=== PATIENT | female | born 1945 | race Caucasian/White ===

== ENCOUNTER 2021-03-23 04:44 | Emergency (ER) | payer BC, MEDICARE, OTHER ==
[~2021-03-23] VITALS: Ht 162.6 cm; Wt 81.6 kg
[2021-03-23] MEDS ORDERED: KETOROLAC 30MG VIAL (30MG/ML) IV ONE (05:30)
[2021-03-23] MEDS ORDERED: 0.9%NACL 1000ML 1,000 ML IV ONE (05:30)
[2021-03-23 05:39] LABS: BASOPHILS % (AUTO) 0.9 % (0.0-5.0); EOSINOPHILS % (AUTO) 5.2 % (0.0-8.0); HEMATOCRIT 43.1 % (36-48); LYMPHOCYTES % (AUTO) 37.7 % (21.0-51.0); MEAN CORPUSCULAR HEMOGLOBIN 27.5 pg (27.0-33.0); MEAN CORPUSCULAR HGB CONC 34.1 g/dL (32.0-36.0); MEAN CORPUSCULAR VOLUME 80.6 fL (79-99); MONOCYTES % (AUTO) 8.8 % (3.0-13.0); NEUTROPHILS % (AUTO) 47.1 % (40.0-77.0); PLATELET COUNT (AUTO) 181 K/uL (130-400); RED BLOOD CELL COUNT(AUTO) 5.35 MIL/uL (4.00-5.50); RED CELL DISTRIBUTION WIDTH 13.1 % (11.0-15.5); WHITE BLOOD COUNT (AUTO) 6.4 K/uL (4.8-10.8)
[2021-03-23 05:47] LABS: CARBON DIOXIDE 28 mmol/L (21-32); CHLORIDE 104 mmol/L (101-111); CREATININE 1.6 mg/dL (0.5-1.5); GLOMERULAR FILTR. RATE CALC 33 mL/min (>60); GLUCOSE,RANDOM 177 mg/dL (70-105); POTASSIUM 3.9 mmol/L (3.5-5.1); SODIUM SERUM 143 mmol/L (136-145); UREA NITROGEN, BLOOD 22 mg/dL (7-18)
[2021-03-23 05:51] LABS: APPEARANCE,URINE Cloudy (CLEAR); BILIRUBIN,URINE Negative (NEGATIVE); COLOR,URINE Yellow (YELLOW); GLUCOSE, URINE (UA) Negative (NEGATIVE); KETONES,URINE Trace mg/dL (NEGATIVE); LEUKOCYTE ESTERASE ,URINE Moderate (NEGATIVE); NITRATE,URINE Positive (NEGATIVE); OCCULT BLOOD,URINE Negative (NEGATIVE); PROTEIN,URINE Negative (NEGATIVE)
[2021-03-23 05:52] LABS: ALANINE AMINOTRANSFERASE 40 U/L (12-78); ASPARTATE AMINOTRANSFERASE 27 U/L (10-37); BILIRUBIN,TOTAL 0.7 mg/dL (0.2-1.0); TOTAL PROTEIN, SERUM 6.7 g/dL (6.0-8.3)
[2021-03-23 05:54] LABS: LIPASE < 50 U/L (114-286)
[2021-03-23 06:09] LABS: BACTERIA,URINE Moderate /HPF (None Seen); RBC,URINE 0-1 /HPF (0-1); SQUAMOUS EPITHELIAL CELL,UR Few /HPF (0-2); WBC,URINE 26-50 /HPF (0-1)
[2021-03-23] MEDS ORDERED: PHEN-776 PO (07:54)
[2021-03-23] MEDS ORDERED: CEPH500B PO (07:54)
[2021-03-23] MEDS ORDERED: DICY20TA2 PO (07:54)
[2021-03-23] MEDS ORDERED: CEFTRIAXONE 1G VIAL IVP ONE (08:00)
[2021-03-23] MEDS ORDERED: CEFTRIAXONE 1G VIAL ONE (08:20)
[2021-03-23 08:58] VITALS: BP 133/64
== END 2021-03-23 09:03 | disposition home or self-care (01) ==
LOC: EDH 04:44
DX: N39.0 Urinary tract infection, site not specified (principal); E11.9 Type 2 diabetes mellitus without complications; E86.1 Hypovolemia; I10 Essential (primary) hypertension; Z79.1 Long term (current) use of non-steroidal anti-inflammatories (NSAID); Z98.890 Other specified postprocedural states
CPT/HCPCS: 36415; 74176; 80053; 81001; 83605; 83690; 85025; 87077; 87088; 87186; 96361; 96374; 96375; 99284; J0696; J1885; J7030

== ENCOUNTER 2021-03-26 08:51 | Emergency (ER) | payer MEDICARE ==
[~2021-03-26] VITALS: Ht 152.4 cm; Wt 81.6 kg
[~2021-03-26 08:51] MED LIST: CEPH500B PO; DICY20TA2 PO; PHEN-776 PO
[2021-03-26 08:52] VITALS: BP 149/74
[2021-03-26] MEDS ORDERED: MELO5CAP3 PO (10:01)
== END 2021-03-26 10:11 | disposition home or self-care (01) ==
LOC: EDH 08:51
DX: S83.91XA Sprain of unspecified site of right knee, initial encounter (principal); I10 Essential (primary) hypertension; E11.9 Type 2 diabetes mellitus without complications; X58.XXXA Exposure to other specified factors, initial encounter; Y93.89 Activity, other specified; Y92.89 Other specified places as the place of occurrence of the external cause; Y99.8 Other external cause status
CPT/HCPCS: 73562

== ENCOUNTER 2022-07-12 15:23 | Emergency (ER) | payer MEDICARE ==
[~2022-07-12] VITALS: Ht 162.6 cm; Wt 59.0 kg
[~2022-07-12 15:23] MED LIST changes: +MELO5CAP3 PO
[2022-07-12 15:47] VITALS: BP 128/81
[2022-07-12] MEDS ORDERED: TETANUS/DIPHTHERIA TOXOID [ADULT] 0.5 ML VIAL IM ONE (16:30)
[2022-07-12] MEDS ORDERED: CEPH500B PO (17:37)
== END 2022-07-12 17:54 | disposition home or self-care (01) ==
LOC: EDH 15:23
DX: S00.01XA Abrasion of scalp, initial encounter (principal); E11.9 Type 2 diabetes mellitus without complications; I10 Essential (primary) hypertension; Z79.899 Other long term (current) drug therapy; Z98.890 Other specified postprocedural states; W18.39XA Other fall on same level, initial encounter; Y93.89 Activity, other specified; Y92.89 Other specified places as the place of occurrence of the external cause; Y99.8 Other external cause status
CPT/HCPCS: 70450; 72125; 90471; 90714

== ENCOUNTER → 2023-11-09 | Outpatient (CLI) | payer OTHER | END | disposition home or self-care (01) | LOC: OIH 12:42 | PROVIDERS: ATTEND Internal Medicine Interventional Cardiology | DX: Z13.6 Encounter for screening for cardiovascular disorders (principal); R93.1 Abnormal findings on diagnostic imaging of heart and coronary circulation | CPT/HCPCS: 75571 ==

== ENCOUNTER 2024-05-06 13:29 | Emergency (ER) | payer OTHER ==
[~2024-05-06] VITALS: Ht 162.6 cm; Wt 68.0 kg
--- NOTE | 2024-05-06 14:47 | HMCIMG ---
KNEE 3VWS RT HISTORY: Right knee pain COMPARISON: None TECHNIQUE: 3 images of right knee were obtained. FINDINGS: There is no acute displaced fracture or dislocation. There is soft tissue swelling. Vascular calcifications are seen. Degenerative changes are seen. IMPRESSION: 1. Findings as described above.
[2024-05-06 14:54] VITALS: BP 160/85; PULSE 68; RESP 16; TEMP 98.1; O2SAT 98
--- NOTE | 2024-05-06 15:15 | ERN ---
General Chief Complaint: Knee Injury/Swelling Stated Complaint: RIGHT KNEE PAIN Time Seen by MD: 14:04 Time Seen by Midlevel: 14:04 Source: patient History of Present Illness Initial Comments 79-year-old female presents to the ED for evaluation of right knee pain onset 2 days ago. Patient reports she fell from a chair onto her knees on Sunday, but states her right knee knee keeps hurting and is swollen. Allergies: Coded Allergies: No Known Drug Allergies (Unverified Allergy, Unknown, 03/23/21) Home Meds Active Scripts Ketorolac Tromethamine (Ketorolac Tromethamine) 10 Mg Tablet, 1 TAB PO BID for pain for 5 Days, #10 TAB 0 Refills Prov:MATTHEW CARD 05/06/24 Cephalexin Monohydrate (Keflex) 500 Mg Cap, 500 MG PO TID for 7 Days, #21 CAP Prov:GIOVANNI PUGH MD 07/12/22 Meloxicam, Submicronized (Meloxicam) 5 Mg Capsule, 5 MG PO DAILY PRN for pain, #10 CAP 0 Refills Prov:HOWARD WU MD 03/26/21 Phenazopyridine HCl (Pyridium) 200 Mg Tablet, 200 MG PO TID, #6 TAB 0 Refills Prov:KEI SERVIN MD 03/23/21 Cephalexin Monohydrate (Keflex) 500 Mg Cap, 500 MG PO TID for 10 Days, #30 CAP 0 Refills Prov:KEI SERVIN MD 03/23/21 Dicyclomine HCl (Bentyl) 20 Mg Tab, 20 MG PO Q6HPRN, #20 TAB 0 Refills Prov:KEI SERVIN MD 03/23/21 Past Medical History Past Medical History: Diabetes-Type II, Hypertension Past Surgical History: None Surgical History Other: Cystocele, Phyllodes Tumor Removal Social History Social History: Negative, Other ROS Dictation Constitutional: Negative for fever,chills, and weight loss Eyes: Negative for injury, pain,redness, and discharge ENT: Negative for injury,pain or swelling Cardiovascular: Negative for chest pain, palpitations, and edema Respiratory: Negative for shortness of breath, cough, and wheezing, Abdomen/GI: Negative for abdominal pain, nausea, vomiting, diarrhea, and co nstipation Back: Negative for injury and pain : Negative for injury, bleeding and discharge MS/Extremity: Positive for knee injury, knee pain, knee swelling Skin: Negative for rash, and discoloration Neuro: Negative for headache, weakness, numbness, tingling, and seizure Psych: Negative for suicide ideation, homicidal ideation, and hallucinations Physical Exam Physical Exam Dictation General: awake, alert, NAD Head/Face: Normocephalic, atraumatic Eyes: PERRL, EOMI, vision at baseline ENT: oral cavity clear, TMs clear, no signs of infection Neck: Trachea midline, supple, no nuchal rigidity Cardiovascular: RRR, normal S1/S2, No MRGs, no JVD Respiratory: CTAB, no respiratory distress, No rales or wheezes Abdomen: Soft, non-tender, non-distended, normal bowel sounds, no guarding or rebound. Skin: Warm, dry, normal turgor, no rash MS/Extremity: Pulses equal, no cyanosis, neurovascular intact, right knee tenderness, swelling Neuro: COAx4, GCS 15, strength 5/5, CN 2-12 intact, normal cerebellar exam, normal gait, Psych: Normal behavior, mood, and affect normal MDM MDM: Patient is a 71-year-old female presenting to the emergency department with right knee pain and mild swelling after a mechanical ground level fall. On physical examination patient has some mild amount of swelling but full range motion of the right knee. There was no point tenderness noted. Distal pulses are intact. Sensation is intact. Right lower extremity is neurovascularly intact. X-ray of the right knee was read by the radiologist as a negative x-ray however when I compared the x-ray that was taken today from one that was performed on earlier this year there appears to be a small avulsion fracture of the superior aspect of the right patella. This could be the reason for her pain and swelling. Patient was offered a knee immobilizer however she refused. The patient had an Reji wrap placed and will be discharged home with supportive management. Differential diagnosis: Fall, knee contusion, knee injury Previous outside records reviewed: Old ER visits. Need for hospitalization: Patient does not meet criteria for hospitalization. Need for emergency major/minor surgery: No Patient's prior external medical records from other ER visits were reviewed by me as indicated. Prior testing and results from previous visits were reviewed. Prior tests were taken into account with medical decision making and resource utilization, independent historian/historians were used to obtain complete medical history. I independently interpreted the test that were performed, results were reviewed by me and considered findings on radiology if ordered. Medical management and examination interpretation discussions were had by me with other qualified healthcare professionals as indicated for the patient's care. ED Course Orders Procedure Category Date Status Time Knee 3vws Rt RAD 05/06/24 Resulted 14:04 Morphine 2mg Syg PHA 05/06/24 Complete (Morphine 2mg Syg) 16:00 Apply Reji Wrap (Er) CPOE 05/06/24 Transmitted 15:56 Current Medications Medications (Trade) Dose Ordered Sig/Иван Route PRN Reason Start Time Stop Time Status Last Admin Dose Admin Morphine Sulfate (morPHINE 2MG SYG) 2 mg ONCE ONCE IM 05/06/24 16:00 05/06/24 16:14 DC 05/06/24 16:26 Vital Signs Date Time Temp Pulse Resp B/P (MAP) Pulse Ox O2 Delivery O2 Flow Rate FiO2 05/06/24 14:54 98.1 68 16 160/85 98 Room Air* 0 21 05/06/24 14:17 97.9 67 20 163/91 96 Room Air 0 [facility] [address] [phone] IMAGING REPORT Signed PATIENT: CRISTELA MOHAMUD MR#: [id number] : 1945 SEX: F AGE: 79 LOCATION: [facility] ORDER 04 STATUS: REG ER REPORT#: [id number] SERVICE 1404 REASON: right knee pain swelling ORDERING PHYSICIAN: MATTHEW CARD PROCEDURE: KNEE 3V RT - KNEE 3VWS RT KNEE 3VWS RT HISTORY: Right knee pain COMPARISON: None TECHNIQUE: 3 images of right knee were obtained. FINDINGS: There is no acute displaced fracture or dislocation. There is soft tissue swelling. Vascular calcifications are seen. Degenerative changes are seen. IMPRESSION: 1. Findings as described above. DICTATED BY: BORIS INFANTE MD DATE: 05/06/241443 ELECTRONICALLY SIGNED BY: BORIS INFANTE MD DATE: 05/06/241446 DX & DISP Disposition: Discharge Departure Impression: Primary Impression: Patella fracture Additional Impression: Contusion of right knee Condition: Stable Scripts Ketorolac Tromethamine (Ketorolac Tromethamine) 10 Mg Tablet 1 TAB PO BID for pain for 5 Days, #10 TAB 0 Refills Prov: MATTHEW CARD 05/06/24 Additional Instructions: You right knee x-ray shows a small avulsion fracture of the right patella. If your symptoms worsened you may follow up with your primary care doctor or orthopedic surgeon for further evaluation. Return to the ER for any new or worsening symptoms Referrals: STEPHEN MARTINEZ MD (PCP) RAYMON ARNOLD MD I have reviewed, & agreed with my scribe's, documentation. (Entered by Chemo Saldana, acting as a scribe for ADITYA Card) I have reviewed the case, and I agree with, Diagnosis and Plan I performed the substantive portion of the visit. I have reviewed and personally made and approve the management plan that is documented in the note by myself or the MARGOT. I acknowledge for responsibility for the patient's management plan. I personally scribed for MATTHEW CARD ([email or web address]) on 05/06/24 at 15:15. Electronically submitted by Chemo Saldana ([email or web address]). MATTHEW CARD May 06, 2024 15:15
[2024-05-06] MEDS ORDERED: KETO10TA2 PO (15:56)
[2024-05-06] MEDS: morPHINE 2 MG SYG IM ONE (16:26)
== END 2024-05-06 16:32 | disposition home or self-care (01) ==
LOC: EDH 13:29
DX: S82.001A Unspecified fracture of right patella, initial encounter for closed fracture (principal); E11.9 Type 2 diabetes mellitus without complications; I10 Essential (primary) hypertension; W07.XXXA Fall from chair, initial encounter; Y93.89 Activity, other specified; Y92.89 Other specified places as the place of occurrence of the external cause; Y99.8 Other external cause status
CPT/HCPCS: 99283; 73562; 96372; J2270

== ENCOUNTER 2024-05-16 07:27 | Emergency (ER) | payer MEDICARE, OTHER ==
[~2024-05-16] VITALS: Ht 162.6 cm; Wt 70.3 kg
[~2024-05-16 07:27] MED LIST changes: +KETO10TA2 PO
--- NOTE | 2024-05-16 08:30 | ERN ---
ED Note History of Present Illness Stated Complaint: RIGHT KNEE PAIN Chief Complaint: Knee Injury/Swelling Dictation: This is a case of a 79-year-old female with a past medical history of diabetes, hypertension who presented to the ER with the complaints of right knee pain. She states that she had a fall on both her knees on 05/03 which prompted visit to the ER. Right knee x-ray at the time resulted in no acute findings and she was discharged on ketorolac pain medication. The pain has subsided initially but intensified yesterday. She describes the pain as constant, moderate, radiating to her right thigh. She denies fever, headache, nausea, vomiting, chest pain, palpitations, abdominal pain, burning sensation when urinating, constipation/diarrhea, numbness, paresthesias, tingling sensations in bilateral lower extremities. Allergies: Coded Allergies: No Known Drug Allergies (Unverified Allergy, Unknown, 03/23/21) Home Meds Active Scripts Ketorolac Tromethamine (Ketorolac Tromethamine) 10 Mg Tablet, 1 TAB PO BID for pain for 5 Days, #10 TAB 0 Refills Prov:MATTHEW MACIEL 05/06/24 Cephalexin Monohydrate (Keflex) 500 Mg Cap, 500 MG PO TID for 7 Days, #21 CAP Prov:GIOVANNI PUGH MD 07/12/22 Meloxicam, Submicronized (Meloxicam) 5 Mg Capsule, 5 MG PO DAILY PRN for pain, #10 CAP 0 Refills Prov:HOWARD WU MD 03/26/21 Phenazopyridine HCl (Pyridium) 200 Mg Tablet, 200 MG PO TID, #6 TAB 0 Refills Prov:KEI SERVIN MD 03/23/21 Cephalexin Monohydrate (Keflex) 500 Mg Cap, 500 MG PO TID for 10 Days, #30 CAP 0 Refills Prov:KEI SERVIN MD 03/23/21 Dicyclomine HCl (Bentyl) 20 Mg Tab, 20 MG PO Q6HPRN, #20 TAB 0 Refills Prov:KEI SERVIN MD 03/23/21 Past Medical History Past Medical History: Diabetes-Type II, Hypertension Surgical History: None Surgical History Other: Cystocele, Phyllodes Tumor Removal Social History: Negative, Other Review of System Dictation CONSTITUTIONAL: No chills, no fever, no weakness, no diaphoresis, no malaise. HEAD/FACE: No signs of trauma. EENT: No eye pain, no blurred vision, no tearing, no double vision, no ear pain, no ear discharge, no nose pain, no nasal congestion, no throat pain, no throat swelling, no mouth pain. RESPIRATORY: No cough, no orthopnea, no SOB, no stridor, no wheezing. CARDIOVASCULAR: No chest pain, no edema, no palpitations, no syncope. GASTROINTESTINAL/ABDOMINAL: No abdominal pain, no constipation, no diarrhea, no nausea, no vomiting. GENITOURINARY: No abnormal discharge, no dysuria, no frequent urination, no hematuria. No complaints of pain in the genitals. MUSCULOSKELETAL: No back pain, no gout, right knee joint pain, swelling above right knee joint, no joint swelling, no neck pain. INTEGUMENTARY: No change in color, no change in hair/nails, no dryness, no lesion, no lumps, no rash. NEUROLOGICAL/PSYCH: No anxiety, not depressed, no emotional problem, no headache, no numbness, no pre-existing deficit, no history of seizures, no tremors, no weakness. HEMATOLOGIC/LYMPHATIC: Not anemic, no history of blood clots, no apparent bleeding, no bruising, glands not swollen. All Systems Negative, Except as Noted. Initial Vital Sign VS Vital Signs Date Time Temp Pulse Resp B/P (MAP) Pulse Ox O2 Delivery O2 Flow Rate FiO2 05/16/24 07:28 98.1 66 20 193/104 99 Room Air 0 05/16/24 07:41 21 Physical Exam Dictation Physical Exam Dictation VITAL SIGNS: Reviewed. GENERAL APPEARANCE: Alert, oriented x3, no acute distress HEAD AND FACE: Non-traumatic. EYES: PERRL, pink conjunctivas, eyelid no trauma, anterior chamber clear. NOSE: No discharge, no bleeding. OROPHARYNX: Mouth normal, teeth no caries, tongue pink. Pharynx clear, no erythema. Tonsils no exudates, no abscesses noted. Mucous membrane moist. NECK: Supple, non-tender, no thyromegaly, no masses, no JVD, no bruits. BREAST: Deferred. CHEST: No tenderness, no crepitus, no paradoxical movement, no retractions. LUNGS: Clear, well-ventilated, symmetric, no rales, no wheezing, no rhonchi, no stridor, good breath sounds bilaterally. HEART: Regular rate, regular rhythm, no murmur, no gallops. VASCULAR: No peripheral edema. ABDOMEN: Soft, positive bowel sounds, nondistended, no guarding, nontender, no rebound RECTAL: Deferred. GENITAL: Deferred. NEUROLOGICAL: Normal speech, gross motor function intact, gross sensory function intact. MUSCULOSKELETAL: Neck nontender, full range of motion, back nontender, full range of motion. EXTREMITIES: Nontender, no tenderness noted at right knee joint, no medial and radial meniscus point tenderness, negative anterior and posterior drawer test, full range of motion. SKIN: Color pink, dry, no turgor, no rash, no lacerations, no abrasions, no contusions. LYMPHATICS: Deferred. Results (Laboratory/Radiology) X-RAY Comment: ORDERING PHYSICIAN: NATHALIE JHAVERI MD PROCEDURE: KNEE 4V RT - KNEE 4+VWS RT Right knee 4 views Clinical Information: PERSISTANT PAIN Comparison: None Findings: There is superior patellar osteophytosis. No other degenerative changes are seen. No acute fractures are seen. The soft tissues appear normal. Impression: Patellar osteophyte. ED Course ED Course Orders Procedure Category Date Status Time Knee 4+Vws Rt RAD 05/16/24 Resulted 08:36 Ketorolac PHA 05/16/24 Complete Tromethamine 30mg/Ml 09:00 Current Medications Medications (Trade) Dose Ordered Sig/Иван Route PRN Reason Start Time Stop Time Status Last Admin Dose Admin Ketorolac Tromethamine (toRADol) 30 mg ONCE ONCE IM 05/16/24 09:00 05/16/24 09:01 DC 05/16/24 09:05 Vital Signs Date Time Temp Pulse Resp B/P (MAP) Pulse Ox O2 Delivery O2 Flow Rate FiO2 05/16/24 10:01 98.8 66 16 158/104 99 Room Air* 0 05/16/24 08:44 98.4 74 20 138/95 99 Room Air* 0 05/16/24 07:41 98.8 65 12 130/108 99 Room Air* 0 05/16/24 07:28 98.1 66 20 193/104 99 Room Air 0 Medical Decision Making MDM MDM Potential differential diagnoses include: Meniscal tears Fracture or dislocations Muscle strain Arthritis Bursitis Assessment: Will order right knee x-ray. We will order ketorolac 30 mg IM for pain. I will re-evaluate the patient after treatment and diagnostic exams have returned to determine whether they require further testing, can be safely discharged home, or need admission for further treatment and evaluation. Given the social determinants of health affecting care, including literacy, access to medical care, prescription drug management, and [id number] drugs, I will ensure that treatment plans are tailored accordingly. Revaluation : Patient is awake alert and oriented. Hemodynamically stable. Her right knee pain has improved. She states that she feels better. We will apply a right knee brace. Right knee x-ray resulted in patellar osteophyte. Disposition: Patient is being discharged to home She is advised to Follow up with PCP within 2-3 days Avoid activities that exacerbate the pain like high impact exercises Elastic knee brace or bandage to provide support and reduce swelling Take [id number] pain relievers such as Advil 400 mg t.i.d. p.r.n. and acetaminophen p.r.n. if the pain still persists, unless contraindicated Monitor for symptoms like increased swelling or redness, fever or chills, persistent or worsening pain despite treatment, instability or locking of the knee and seek immediate medical attention in such scenario DX & DISP Disposition: Discharge Departure Impression: Primary Impression: Right knee pain Critical Time: 30 minutes Condition: Stable Referrals: STEPHEN MARTINEZ MD (PCP) ATTESTATION BY PHYSICIAN I have seen and examined the patient. I reviewed the documentation, medical decision making, and treatment plan as noted by the resident above. I agree with the findings and plan of care. NATHALIE JHAVERI MD, PRIYANKA MD May 16, 2024 08:30
[2024-05-16] MEDS: ketOROlac 30MG VIAL (30MG/ML) IM ONE (09:05)
--- NOTE | 2024-05-16 09:21 | HMCIMG ---
Right knee 4 views Clinical Information: PERSISTANT PAIN Comparison: None Findings: There is superior patellar osteophytosis. No other degenerative changes are seen. No acute fractures are seen. The soft tissues appear normal. Impression: Patellar osteophyte.
[2024-05-16 10:01] VITALS: BP 158/104; PULSE 66; RESP 16; TEMP 98.7; O2SAT 99
== END 2024-05-16 10:19 | disposition home or self-care (01) ==
LOC: EDH 07:27
DX: M25.561 Pain in right knee (principal); E11.9 Type 2 diabetes mellitus without complications; I10 Essential (primary) hypertension; Z79.899 Other long term (current) drug therapy; X58.XXXA Exposure to other specified factors, initial encounter; Y93.89 Activity, other specified; Y92.89 Other specified places as the place of occurrence of the external cause; Y99.8 Other external cause status
CPT/HCPCS: 99284; 73564; 29530; 96372; J1885